=== PATIENT | male | born 1985 | race Caucasian/White ===

== ENCOUNTER 2017-09-21 16:33 | Emergency (ER) | payer SELFPAY ==
[2017-09-21 16:44] VITALS: BP 127/76
--- NOTE | 2017-09-21 16:47 | UC ---
Eye Complaint HPI - HPI Summary HPI Summary: Pt presents with spontaneous bleeding in left eye. 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 He is confident that nothing got into his eye. His coworker noticed that pt's eye was red - pt dabbed his eye with his shirt and noticed some blood. Looked in the mirror and saw the inner part of his left eye was red. Says this happened once before about a year ago in the same eye. No pain, FB sensation, or vision changes. - History of Current Complaint Hx Obtained From: Patient Onset/Duration: Sudden Onset Severity Currently: None Pain Intensity: 0 Location of Injury: Sclera <Radhames Hansen - Last Filed: 09/21/17 17:35> <Tina Friend - Last Filed: 09/21/17 20:30> - History of Current Complaint Chief Complaint: UCEye Stated Complaint: EYE IRRITATION Time Seen by Provider: 09/21/17 16:46 - Allergies/Home Medications Allergies/Adverse Reactions: Allergies Allergy/AdvReac Type Severity Reaction Status Date / Time amoxicillin Allergy Rash And Verified 09/21/17 16:44 Itching Home Medications: Home Medications NK [No Home Medications Reported] 09/21/17 [History Confirmed 09/21/17] PMH/Surg Hx/FS Hx/Imm Hx - Additional Past Medical History Additional PMH: None Previously Healthy: Yes - Surgical History Surgical History: None - Family History Known Family History: Positive: Unknown - Social History Occupation: Employed Full-time Lives: With Family Alcohol Use: None Substance Use Type: None Smoking Status (MU): Heavy Every Day Tobacco Smoker <Radhames Hansen - Last Filed: 09/21/17 17:35> Review of Systems Constitutional: Negative Skin: Negative Eyes: Eye Redness - Left ENT: Negative Respiratory: Negative Cardiovascular: Negative Neurovascular: Negative Musculoskeletal: Negative Neurological: Negative Psychological: Negative All Other Systems Reviewed And Are Negative: Yes <Radhames Hansen - Last Filed: 09/21/17 17:35> Physical Exam - Summary Physical Exam Summary: GENERAL: NAD. WDWN. No pain distress. SKIN: No rashes, sores, ulcers, masses, lesions. HEENT: Head: AT/NC Eyes: Left eye: Medial sclera with subconjunctival hemorrhage. EOM intact. PERRLA. Conjunctiva clear without inflammation. No drainage or active bleeding. Vision difficulty to assess as pt wears glasses, but does not have them with him. OS/OD/OU 20/40. No orbital tenderness or visible sclera laceration. Ears: Hearing grossly normal. TMs intact, no bulging, erythema, or edema. Nose: Nasal mucosa pink and moist. NTTP maxillary and frontal sinus. NECK: Supple. Nontender. No lymphadenopathy. CHEST: CTAB. No r/r/w. No accessory muscle use. Breathing comfortably and in no distress. CV: RRR. Without m/r/g. Pulses intact. Brisk cap refill. NEURO: Alert. CN II-XII grossly intact. PSYCH: Age appropriate behavior. Triage Information Reviewed: Yes Vital Signs: Initial Vital Signs Temp 99.3 F 09/21/17 16:38 Pulse 96 09/21/17 16:38 Resp 16 09/21/17 16:38 BP 127/76 09/21/17 16:38 Pulse Ox 99 09/21/17 16:38 <Radhames Hansen - Last Filed: 09/21/17 17:35> Vital Signs: Initial Vital Signs Temp 99.3 F 09/21/17 16:38 Pulse 96 09/21/17 16:38 Resp 16 09/21/17 16:38 BP 127/76 09/21/17 16:38 Pulse Ox 99 09/21/17 16:38 <Tina Friend - Last Filed: 09/21/17 20:30> Eye Complaint Course/Dx - Course Course Of Treatment: I called Dr. Moura @ 170 (sack department supervisor ophthalmology) to discuss pt's symptoms. I suspect this is a subconjunctival hemorrhage, but with scant bleeding/watering from the eye earlier today I wanted to discuss the case with Dr. Moura. No call as of 1734 and pt did not want to wait any longer. I advised him to follow up with his eye doctor tomorrow and he was agreeable to this. 1800 Dr. Moura returned call and apologized as he was in doing procedures. He advised to have him f/u with his eye doctor or with himself tomorrow for further eval - no further evaluation or investigation tonight needed. - Differential Dx/Diagnosis Provider Diagnoses: subconjunctival hemorrhage left eye <Gilberto Hansenothy - Last Filed: 09/21/17 17:35> Discharge - Sign-Out/Discharge Documenting (check all that apply): Discharge/Admit/Transfer - Billing Disposition and Condition Condition: STABLE Disposition: HOME <Radhames Hansen - Last Filed: 09/21/17 17:35> - Billing Disposition and Condition Condition: STABLE Disposition: HOME <Tina Friend - Last Filed: 09/21/17 20:30> - Discharge Plan Condition: Stable Disposition: HOME Patient Education Materials: Subconjunctival Hemorrhage (ED) Referrals: Jone Pardo MD [Primary Care Provider] - Christopher Moura MD [Medical Doctor] - As Soon As Possible Additional Instructions: If you develop a fever, shortness of breath, chest pain, new or worsening symptoms - please call your PCP or go to the ED. 1) Please follow up with your eye doctor tomorrow for further evaluation and treatment Attestations User Type: Provider - I was available for consult. This patient was seen by the [facility]. The patient was not presented to, seen by, or examined by me. -Darvin <Tina Friend - Last Filed: 09/21/17 20:30>
== END 2017-09-21 17:32 | disposition home or self-care (01) ==
LOC: UCEAST 16:33
DX: H11.32 Conjunctival hemorrhage, left eye (principal); Z88.0 Allergy status to penicillin; F17.210 Nicotine dependence, cigarettes, uncomplicated
CPT/HCPCS: 99211; G0463

== ENCOUNTER 2017-10-19 18:41 | Emergency (ER) | payer SELFPAY ==
[2017-10-19 18:47] VITALS: BP 117/68
--- NOTE | 2017-10-19 19:02 | UC ---
Jack Osullivan Natalie, scribed for Grey Celeste MD on 10/19/17 at 1855 . Dental HPI - HPI Summary HPI Summary: The patient is a 31 y/o M presenting to [facility] c/o lower right back molar pain gradual onset since yesterday. The pain is rated 9/10 in severity. He has had prior dental extractions. The pt is unable to get a dentist appointment until November. Smoker. - History of Current Complaint Chief Complaint: UCDentalProblem Stated Complaint: DENTAL COMPLAINT Time Seen by Provider: 10/19/17 18:49 Hx Obtained From: Patient Onset/Duration: Gradual Onset, Lasting Hours, Still Present Severity: Severe Pain Intensity: 9 Pain Scale Used: 0-10 Numeric Aggravating Factor(s): Nothing Alleviating Factor(s): Nothing - Allergies/Home Medications Allergies/Adverse Reactions: Allergies Allergy/AdvReac Type Severity Reaction Status Date / Time amoxicillin Allergy Rash And Verified 10/19/17 18:48 Itching Home Medications: Home Medications Aspirin/Acetaminophen/Caffeine [Goodys Extra Strength 520-260-32.5 mg] 1 pow PO 10/19/17 [History] PMH/Surg Hx/FS Hx/Imm Hx Other Endocrine History: NEGATIVE: diabetes Other Cardiovascular History: NEGATIVE: HTN - Surgical History Surgical History: None - Family History Known Family History: Negative: Hypertension, Diabetes - Social History Alcohol Use: None Substance Use Type: None Smoking Status (MU): Heavy Every Day Tobacco Smoker Type: Cigarettes Review of Systems Constitutional: Negative - fever ENT: Dental Pain - right lower back molar All Other Systems Reviewed And Are Negative: Yes Physical Exam Triage Information Reviewed: Yes Appearance: Well-Appearing, No Pain Distress, Well-Nourished Vital Signs: Initial Vital Signs Temp 99.2 F 10/19/17 18:44 Pulse 81 10/19/17 18:44 Resp 18 10/19/17 18:44 BP 117/68 10/19/17 18:44 Pulse Ox 99 10/19/17 18:44 Vital Signs Reviewed: Yes ENT Exam: Normal ENT: Positive: Uvula midline, Other - no facial swelling. Negative: Muffled voice, Hoarse voice Dental: Positive: Gross Decay/Caries @ - gross decay and caries present along the buccal side of the right mandibular teeth. Posterior right inferior molar very decayed with point tenderness. Neck: Positive: Supple, Nontender, No Lymphadenopathy Respiratory: Positive: Normal breath sounds Cardiovascular: Positive: Pulses Normal, Brisk Capillary Refill Abdomen Description: Negative: Distended Musculoskeletal: Positive: Strength Intact, ROM Intact Neurological Exam: Normal Psychological Exam: Normal Skin Exam: Normal Dental Complaint Course/Dx - Course Course Of Treatment: The patient is a 31 y/o M with pain in right lower back molar. He will be discharged home with prescription for Clindamycin. - Differential Dx/Diagnosis Provider Diagnoses: dental cavities. dental infection Discharge - Sign-Out/Discharge Documenting (check all that apply): Discharge/Admit/Transfer - Discharge Plan Condition: Good Disposition: HOME Prescriptions: Clindamycin Cap(NF) [Clindamycin Cap 300 mg Cap(NF)] 300 mg PO TID #30 cap Patient Education Materials: Dental Abscess (ED), Toothache (ED) Referrals: Jone Pardo MD [Primary Care Provider] - 2 Days HAZEL SIMENTAL [Doctor of Dental Surgery] - - Billing Disposition and Condition Condition: GOOD Disposition: HOME The documentation as recorded by the Jack reagan Natalie accurately reflects the service I personally performed and the decisions made by Roula bedolla Walter, MD.
== END 2017-10-19 19:00 | disposition home or self-care (01) ==
LOC: UCEAST 18:41
DX: K02.9 Dental caries, unspecified (principal); K04.7 Periapical abscess without sinus; F17.210 Nicotine dependence, cigarettes, uncomplicated; Z88.0 Allergy status to penicillin
CPT/HCPCS: 99212; G0463

== ENCOUNTER 2018-04-23 10:21 | Emergency (ER) | payer MEDICAID, OTHER ==
[2018-04-23 10:29] VITALS: BP 150/88
--- NOTE | 2018-04-23 10:58 | UC ---
Dental HPI - HPI Summary HPI Summary: 32-year-old male comes in with a chief complaint of dental pain. Patient's been going on for days it's in the right lower molars. He is getting some swelling now into the cheek. He's been trying stdc-xif-wsbjpue medicines which helped briefly for the pain but then the pain comes back. Has had some chills no known fevers. - History of Current Complaint Chief Complaint: UCDentalProblem Stated Complaint: DENTAL Time Seen by Provider: 04/23/18 10:48 Pain Intensity: 10 - Allergies/Home Medications Allergies/Adverse Reactions: Allergies Allergy/AdvReac Type Severity Reaction Status Date / Time amoxicillin Allergy Rash And Verified 04/23/18 10:29 Itching PMH/Surg Hx/FS Hx/Imm Hx Previously Healthy: Yes - Surgical History Surgical History: None - Family History Known Family History: Positive: Unknown Negative: Hypertension, Diabetes - Social History Alcohol Use: None Substance Use Type: None Smoking Status (MU): Heavy Every Day Tobacco Smoker Type: Cigarettes Review of Systems All Other Systems Reviewed And Are Negative: Yes Constitutional: Positive: Chills Skin: Positive: Negative Eyes: Positive: Negative ENT: Positive: Dental Pain Respiratory: Positive: Negative Cardiovascular: Positive: Negative Gastrointestinal: Positive: Negative Motor: Positive: Negative Neurovascular: Positive: Negative Musculoskeletal: Positive: Negative Neurological: Positive: Negative Psychological: Positive: Negative Is Patient Immunocompromised?: No Physical Exam Triage Information Reviewed: Yes Appearance: Well-Appearing, Well-Nourished, Pain Distress - MILD Vital Signs: Initial Vital Signs Temp 98.2 F 04/23/18 10:25 Pulse 77 04/23/18 10:25 Resp 18 04/23/18 10:25 BP 150/88 04/23/18 10:25 Pulse Ox 100 04/23/18 10:25 Vital Signs Reviewed: Yes Eye Exam: Normal Eyes: Positive: Conjunctiva Clear ENT: Positive: Pharynx normal, Uvula midline, Other - Oral pharynx is open Dental: Positive: Other: - Right lower molars have severe decay with gingival swelling and some swelling to the cheek. Neck exam: Normal Neck: Positive: Supple Respiratory: Positive: Lungs clear, Normal breath sounds, No respiratory distress Cardiovascular: Positive: RRR Musculoskeletal Exam: Normal Musculoskeletal: Positive: Strength Intact, ROM Intact Neurological Exam: Normal Neurological: Positive: Alert, Muscle Tone Normal Psychological Exam: Normal Psychological: Positive: Age Appropriate Behavior Skin Exam: Normal Dental Complaint Course/Dx - Course Course Of Treatment: Patient's been taking gvza-lkv-epqxeqj pain medications which include acetaminophen. We discussed pain treatment for the infection pain. In the past he's had hydrocodone which made him feel nauseous. The plan is to give him a short course of oxycodone because it does not have the acetaminophen and I'm concerned about his potential for acetaminophen overdosing given the ahlt-ncj-[id number] medications. He has an allergy to penicillin treating with clindamycin. Plan is follow up with his dentist. - Differential Dx/Diagnosis Provider Diagnoses: DENTAL INFECTION Discharge - Sign-Out/Discharge Documenting (check all that apply): Patient Departure All imaging exams completed and their final reports reviewed: No Studies - Discharge Plan Condition: Stable Disposition: HOME Prescriptions: Clindamycin Cap(NF) [Clindamycin Cap 300 mg Cap(NF)] 300 mg PO Q6H #40 cap oxyCODONE TAB* [Roxycodone TAB 5 mg*] 5 mg PO Q4H PRN #15 tab MDD 6 PRN Reason: Pain Patient Education Materials: Toothache (ED) Referrals: Jone Pardo MD [Primary Care Provider] - Additional Instructions: FOLLOW UP WITH YOUR DENTIST. GET RECHECKED FOR ANY WORSENING OF YOUR CONDITION OR QUESTIONS OR CONCERNS. - Billing Disposition and Condition Condition: STABLE Disposition: Home
== END 2018-04-23 11:08 | disposition home or self-care (01) ==
LOC: UCEAST 10:21
DX: K04.7 Periapical abscess without sinus (principal); Z88.0 Allergy status to penicillin; F17.210 Nicotine dependence, cigarettes, uncomplicated
CPT/HCPCS: 99212; G0463

== ENCOUNTER 2018-10-11 17:20 | Emergency (ER) | payer OTHER ==
[2018-10-11 17:37] VITALS: BP 149/73
--- NOTE | 2018-10-11 17:43 | UC ---
Respiratory Complaint HPI - HPI Summary HPI Summary: 32 -year-old smoker who states he's had left lung pain over the past 2 weeks. He denies any fever or chills. He states he had some left kidney pain a couple weeks ago and was seen at [facility] but nothing was found. He saw his primary care provider for the left lung pain who told him to stop smoking but did not do any x-rays. - History of Current Complaint Chief Complaint: UCRespiratory Stated Complaint: RESP COMPLAINT Time Seen by Provider: 10/11/18 17:29 Hx Obtained From: Patient Onset/Duration: Gradual Onset Severity Initially: Mild Severity Currently: Mild Pain Intensity: 5 Character: Cough: Nonproductive Aggravating Factors: Deep Breaths - Patient states he has pain on deep inspiration in the left lung. Alleviating Factors: Nothing Associated Signs And Symptoms: Positive: Negative - Allergies/Home Medications Allergies/Adverse Reactions: Allergies Allergy/AdvReac Type Severity Reaction Status Date / Time amoxicillin Allergy Rash And Verified 04/23/18 10:29 Itching ofloxacin [From Floxin] Allergy See Comment Verified 10/11/18 17:39 Home Medications: Home Medications Naproxen Sodium [Naproxen 220 mg] 1 tab PO Q12HR PRN 10/11/18 [History Confirmed 10/11/18] PMH/Surg Hx/FS Hx/Imm Hx Previously Healthy: Yes Respiratory History: Asthma - Patient states he's been bothered by asthma all of his life. - Surgical History Surgical History: Yes Surgery Procedure, Year, and Place: L hand - Family History Known Family History: Positive: Unknown Negative: Hypertension, Diabetes - Social History Alcohol Use: None Substance Use Type: None Smoking Status (MU): Heavy Every Day Tobacco Smoker Type: Cigarettes Review of Systems All Other Systems Reviewed And Are Negative: Yes Respiratory: Positive: Cough - Dry nonproductive cough, "left lung pain" on deep inspiration. Is Patient Immunocompromised?: No Physical Exam Triage Information Reviewed: Yes Appearance: Well-Appearing, No Pain Distress, Well-Nourished Vital Signs: Initial Vital Signs Temp 99.8 F 10/11/18 17:35 Pulse 96 10/11/18 17:35 Resp 18 10/11/18 17:35 BP 149/73 10/11/18 17:35 Pulse Ox 99 10/11/18 17:35 Vital Signs Reviewed: Yes Eyes: Positive: Conjunctiva Clear ENT: Positive: Hearing grossly normal, Pharynx normal, TMs normal, Uvula midline Neck: Positive: Supple, Nontender, No Lymphadenopathy Respiratory: Positive: Lungs clear, Normal breath sounds, No respiratory distress, No accessory muscle use Cardiovascular: Positive: RRR, No Murmur, Pulses Normal, Brisk Capillary Refill Abdomen Description: Positive: Nontender, No Organomegaly, Soft Bowel Sounds: Positive: Present Musculoskeletal Exam: Normal Neurological Exam: Normal Psychological Exam: Normal Skin Exam: Normal Respiratory Course/Dx - Course Course Of Treatment: Chest x-ray:FINDINGS: The heart and mediastinum are normal in size and contour. There is linear density at the left lung base consistent with pleural effusion. Elsewhere the lungs are grossly clear. Visualized bones are normal for the patient's age. There is no radiographic evidence of free air beneath the diaphragm IMPRESSION: PLEURAL EFFUSION AND/OR LOWER LUNG CONSOLIDATION AT THE LEFT LUNG BASE. After consultation with Dr. Rucker, the patient is referred to the emergency room for further treatment. The emergency department was notified. Patient refuses ambulance transport and prefers to go by private car with another person. He was advised that if he has any difficulties or any concerns he is to car repairer pullman and call 911. Patient is agreeable to this plan of action. - Differential Dx/Diagnosis Provider Diagnosis: Pleural effusion - Physician Notification/Consults Discussed Patient Care With: Matthew Rucker Time Discussed With Above Provider: 18:13 Discharge - Sign-Out/Discharge Documenting (check all that apply): Patient Departure All imaging exams completed and their final reports reviewed: Yes - Discharge Plan Condition: Fair Disposition: HOME-RECOMMEND TO ED Referrals: Jone Pardo MD [Primary Care Provider] - Additional Instructions: After the evaluation by the nurse practitioner, it is recommended that you go to the emergency room for further evaluation of the left lung pain and pleural effusion where you should receive additional testing that can be completed in the emergency department. It is recommended that you go directly to the emergency department. This evaluation may include blood work or imaging. This testing will be directed and decided by the provider that evaluates you within the emergency department. If pain becomes worse, you feel lightheaded or you develop worsening symptoms or have any other concerns while you are driving to the emergency room, please car repairer pullman and call 911. - Billing Disposition and Condition Condition: FAIR Disposition: Home-Recommend to ED
== END 2018-10-11 18:30 | disposition home health service (06) ==
LOC: UCEAST 17:20
DX: J90 Pleural effusion, not elsewhere classified (principal); N23 Unspecified renal colic; J45.909 Unspecified asthma, uncomplicated; Z88.1 Allergy status to other antibiotic agents; Z88.0 Allergy status to penicillin; F17.210 Nicotine dependence, cigarettes, uncomplicated
CPT/HCPCS: 71046; 99212; G0463